=== PATIENT | male | born 1980 | race Caucasian/White ===

== ENCOUNTER 2016-04-22 09:49 | Emergency (ER) | payer MEDICAID ==
--- NOTE | 2016-04-22 10:14 | EDPHY ---
H & P Stated Complaint: chromic back pain, sever pain past 3 days Time Seen by Provider: 04/22/16 09:52 HPI/ROS: CHIEF COMPLAINT: Acute on chronic low back pain HISTORY OF PRESENT ILLNESS: 35-year-old male presents emergency department complaining of low back pain worse x1 0.5 weeks. Patient works in construction. He has a known herniated disc L5-S1 and has had multiple steroid injections. Last steroid injection was 3 months ago. Patient has an appointment to see a neurosurgeon on Sunday, he reports his pain is too severe to wait. He takes cyclobenzaprine alternating with baclofen and he takes meloxicam and gabapentin. Patient states he has been out of his gabapentin for 3 days, he has a refill waiting for him in [place]. He denies saddle anesthesias , no loss of control of his bowel or bladder, no new trauma. No fevers. REVIEW OF SYSTEMS: A comprehensive 10 point review of systems is otherwise negative aside from elements mentioned in the history of present illness. Source: Patient Exam Limitations: No limitations - Personal History Current Tetanus/Diphtheria Vaccine: Yes Current Tetanus Diphtheria and Acellular Pertussis (TDAP): Yes Tetanus Vaccine Date: < 10 years - Medical/Surgical History Hx Asthma: No Hx Chronic Respiratory Disease: No Hx Diabetes: No Hx Cardiac Disease: No Hx Renal Disease: No Hx Cirrhosis: No Hx Alcoholism: No Hx HIV/AIDS: No Hx Splenectomy or Spleen Trauma: No Other PMH: chronic back pain, anxiety, depression - Social History Smoking Status: Current every day smoker - Physical Exam Exam: Physical Exam Gen: Alert and Oriented, NAD HEENT: PERRL, moist mucous membranes NECK: no meningismus CV: regular rate and regular rhythm PULM: CTAB, no wheezes ABDOMEN: soft, non tender to palpation, BS present BACK: Left-sided SI joint tenderness to palpation, no midline tenderness NEURO: Neurologically grossly intact, 2/4 deep tendon reflexes patellar and Achilles bilaterally, 2+ pedal pulses, sensation intact to light touch EXTREMITIES: normal appearing SKIN: no rash or break in skin on exposed skin PSYCH: answers questions appropriately. Constitutional: Initial Vital Signs Temperature (C) 37 C 04/22/16 09:52 Heart Rate 121 H 04/22/16 09:52 Respiratory Rate 22 H 04/22/16 09:52 Blood Pressure 150/88 H 04/22/16 09:52 O2 Sat (%) 97 04/22/16 09:52 O2 Delivery Mode Room Air Allergies/Adverse Reactions: acetaminophen Allergy (Verified 04/22/16 09:51) erythromycin base Allergy (Verified 04/22/16 09:51) Home Medications: Medication Instructions Recorded ALPRAZolam 04/22/16 Baclofen 04/22/16 Flexeril 04/22/16 MIRTAZAPINE 04/22/16 Meloxicam 04/22/16 Neurontin 04/22/16 Oxycodone HCl 5 mg PO Q4-6PRN PRN #7 tablet 04/22/16 Medical Decision Making ED Course/Re-evaluation: 35-year-old male presents with acute on chronic low back pain worse on the left side, no signs of cauda equina syndrome or spinal abscess. Patient is given a small prescription for oxycodone, he has an appointment on Sunday with a neurosurgeon. Patient is given return precautions for loss of control of his bowel or bladder, saddle anesthesias, fevers, any other questions or concerns. Differential Diagnosis: The differential diagnosis for the patient's back pain included but was not limited to musculo-skeletal pain, epidural abscess, herniated disk, spinal fracture, cauda equina and intra-abdominal causes including urinary system. Departure - Departure Disposition: Home, Routine, Self-Care Clinical Impression: Acute exacerbation of chronic low back pain Condition: Good Instructions: Chronic Back Pain (ED), Lower Back Exercises (ED), Lumbar Radiculopathy (ED) Additional Instructions: Take your Neurontin, baclofen and Flexeril along with your meloxicam as prescribed. Take 5 mg of oxycodone every 4-6 hours as needed for severe pain. Follow-up with your neurosurgeon. Ice or heat whichever feels better, gentle range of motion exercises, core strengthening exercises daily. Return to the emergency department for any loss of control of your bowel or bladder, numbness to your groin, fevers. Referrals: NONE *PRIMARY CARE P,. [Primary Care Provider] - As per Instructions Prescriptions: Oxycodone HCl 5 mg PO Q4-6PRN PRN #7 tablet PRN Reason: Pain, Breakthrough
[2016-04-22] MEDS ORDERED: oxyCODONE IR 5 MG TAB PO ONE (10:38)
[2016-04-22] MEDS ORDERED: GABAPENTIN 300 MG CAP PO ONE (10:38)
[2016-04-22 11:04] VITALS: BP 117/80; PULSE 112; RESP 16; TEMP 96.8; O2SAT 95
== END 2016-04-22 11:03 | disposition home or self-care (01) ==
DX: M54.5 Low back pain (principal); G89.29 Other chronic pain; F17.200 Nicotine dependence, unspecified, uncomplicated